=== PATIENT | female | born 2000 | race Caucasian/White ===

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

== ENCOUNTER 2022-05-09 10:20 | Emergency (ER) | payer MEDICAID, OTHER ==
[~2022-05-09] VITALS: Ht 170.2 cm; Wt 91.0 kg
[2022-05-09 10:29] VITALS: BP 131/88
[2022-05-09] MEDS ORDERED: ACETAMINOPHEN 325MG TABLET PO ONE (11:15)
[2022-05-09] MEDS ORDERED: BENZ200C52 MT (12:23)
[2022-05-09] MEDS ORDERED: IBUP-2029 MT (12:23)
== END 2022-05-09 12:44 | disposition home or self-care (01) ==
LOC: ER 10:20
DX: B34.9 Viral infection, unspecified (principal)
CPT/HCPCS: 71045; 81025; 99283